=== PATIENT | female | born 1985 | race Hispanic/Latino ===

== ENCOUNTER 2019-05-12 09:21 | Emergency (ER) | payer MEDICAID | END 2019-05-12 10:53 | disposition home or self-care (01) | LOC: EDH 09:21 | DX: H05.011 Cellulitis of right orbit (principal); R51 Headache; Z90.49 Acquired absence of other specified parts of digestive tract ==

== ENCOUNTER 2019-05-15 15:06 | Emergency (ER) | payer MEDICAID ==
[2019-05-15 16:34] LABS: BASOPHILS % (AUTO) 1.1 % (0.0-5.0); EOSINOPHILS % (AUTO) 2.1 % (0.0-8.0); HEMATOCRIT 39.6 % (36-48); MEAN CORPUSCULAR HEMOGLOBIN 31.1 pg (27.0-33.0); MEAN CORPUSCULAR HGB CONC 33.3 g/dL (32.0-36.0); MEAN CORPUSCULAR VOLUME 93.2 fL (79-99); MONOCYTES % (AUTO) 10.1 % (3.0-13.0); NEUTROPHILS % (AUTO) 58.4 % (40.0-77.0); PLATELET COUNT (AUTO) 216 K/uL (130-400); RED BLOOD CELL COUNT(AUTO) 4.25 MIL/uL (4.00-5.50); RED CELL DISTRIBUTION WIDTH 12.7 % (11.0-15.5); WHITE BLOOD COUNT (AUTO) 3.8 K/uL (4.8-10.8)
== END 2019-05-15 17:11 | disposition home or self-care (01) ==
LOC: EDH 15:06
DX: H57.11 Ocular pain, right eye (principal); Z90.49 Acquired absence of other specified parts of digestive tract
CPT/HCPCS: 36415; 85025